=== PATIENT | male | born 1950 | race Caucasian/White ===

== ENCOUNTER 2023-11-10 20:48 | Inpatient (IN) | payer BC ==
[~2023-11-10] VITALS: Ht 170.2 cm; Wt 75.3 kg
[2023-11-10] MEDS ORDERED: ALBUTEROL (0.083%) 2.5MG/3ML NEB HHN ONE (21:15)
[2023-11-10] MEDS: ATROPINE SULFATE 1MG/10ML SYR IV ONE (21:15)
[2023-11-10] MEDS: INSULIN REGULAR (HUMULIN R) 1000UNITS/10ML VIAL IV ONE (21:17)
[2023-11-10] MEDS: SODIUM POLYSTYRENE SULFONATE 15 G/60 ML BOT PO ONE (21:21)
[2023-11-10] MEDS: SODIUM BICARBONATE 8.4% 50MEQ/50ML SYR IV ONE (21:21)
[2023-11-10] MEDS: DEXTROSE 50% WATER 50ML SYRINGE IV ONE (21:21)
[2023-11-10] MEDS: CALCIUM CHLORIDE 1GM/10ML SYR IV ONE (21:21)
[2023-11-10 21:23] LABS: BASOPHILS % 0.5 % (0.0-2.0); DIFFERENTIAL COMMENT 0; HEMATOCRIT. 31.3 % (42.0-52.0); HEMOGLOBIN. 10.4 g/dL (14.0-18.0); LYMPHOCYTES % 23.9 % (20.0-50.0); MEAN CORPUSCULAR HEMOGLOBIN 33.3 pg (28.0-32.0); MEAN CORPUSCULAR HGB CONC 33.1 g/dL (31.0-37.0); MEAN CORPUSCULAR VOLUME 100.8 fL (80.0-94.0); MEAN PLATELET VOLUME 9.1 fl (7.4-10.4); MONOCYTES % 9.2 % (2.0-8.0); NEUTROPHILS % 64.4 % (40.0-76.0); PLATELET 213 x1000/uL (130-400); RED BLOOD CELL COUNT 3.11 mill/uL (4.7-6.1); RED CELL DISTRIBUTION WIDTH 13.4 % (11.6-14.6); WHITE BLOOD COUNT 12.2 x1000/uL (4.5-11.0)
[2023-11-10 21:28] LABS: CHLORIDE 92 mEq/L (98-107); POTASSIUM 4.5 mEq/L (3.5-5.1); SODIUM 134 mEq/L (136-145)
[2023-11-10 21:29] LABS: CARBON DIOXIDE 30 mEq/L (21-32)
[2023-11-10] MEDS ORDERED: DOPAMINE 800MG/500ML PREMIX 500 ML IV ONE (21:30)
[2023-11-10 21:32] LABS: PARTIAL THROMBOPLASTIN TIME 26.2 sec (23.4-31.0); PROTHROMBIN TIME 10.8 sec (9.6-11.0)
[2023-11-10 21:34] LABS: GLUCOSE 185 mg/dL (70-105); UREA NITROGEN BLOOD 68 mg/dL (9-23)
[2023-11-10 21:35] LABS: LACTIC ACID 2.7 mmol/L (0.4-2.0)
[2023-11-10 21:44] LABS: CREATININE 11.1 mg/dL (0.6-1.3); ETHANOL BLOOD < 10 mg/dL (<10); TROPONIN I HIGH SENSITIVITY 62 ng/L (3.0-53)
[2023-11-10] MEDS: DOPAMINE 800MG/500ML PREMIX 500 ML IV NR (21:46)
[2023-11-10 22:06] LABS: ALANINE AMINOTRANSFERASE 8 IU/L (10-49)
[2023-11-10 22:07] LABS: ALBUMIN 4.1 g/dL (3.2-4.8); ASPARTATE AMINOTRANSFERASE 14 IU/L (<34); BILIRUBIN TOTAL 0.2 mg/dL (0.1-1.0)
[2023-11-10 22:18] LABS: BILIRUBIN DIRECT < 0.1 mg/dL (<=3.0)
[2023-11-10] MEDS: ONDANSETRON HCL 4MG/2ML INJ IV ONE (22:54)
[2023-11-10 23:03] LABS: TROPONIN I HIGH SENSITIVITY 74 ng/L (3.0-53)
[2023-11-11] VITALS (88 sets, daily range): BP systolic 55–183; BP diastolic 20–169; PULSE 34–87; RESP 6–60; TEMP 36.33624–36.8072; O2SAT 91–100
[2023-11-11] MEDS ORDERED: CLONIDINE 0.1MG TABLET PO PRN (01:45)
[2023-11-11] MEDS ORDERED: GUAIFENESIN 200MG/10ML SUGAR FREE UDC PO PRN (01:45)
[2023-11-11] MEDS ORDERED: DOCUSATE SODIUM 100MG CAPSULE PO PRN (01:45)
[2023-11-11] MEDS ORDERED: ACETAMINOPHEN 325MG TABLET PO PRN (01:45)
[2023-11-11] MEDS ORDERED: NA PHOS,M-B/NA PHOS,DI-BA ENEMA 118ML PR PRN (01:45)
[2023-11-11] MEDS ORDERED: ONDANSETRON HCL 4MG/2ML INJ IV PRN (01:45)
[2023-11-11] MEDS ORDERED: HYDROCODONE/ACETAMINOPHEN 5/325MG TABLET PO PRN (01:45)
[2023-11-11] MEDS ORDERED: IPRATROPIUM/ALBUTEROL 0.5-3(2.5)MG/3ML NEB HHN PRN (01:45)
[2023-11-11] MEDS ORDERED: MAGNESIUM/ALUMINUM HYDROXIDE/SIMETHICONE 30ML UDC PO PRN (01:45)
[2023-11-11] MEDS ORDERED: DEXTROSE 50% WATER 50ML SYRINGE IV PRN (01:45)
[2023-11-11] MEDS: PANTOPRAZOLE SODIUM 40 MG/VIAL IV SCH (03:36)
[2023-11-11] MEDS: DEXT 5%/0.9% NACL 1,000 ML IV SCH (03:40)
[2023-11-11] MEDS ORDERED: INSLIS SUBCUT (04:23)
[2023-11-11 06:07] LABS: HEMATOCRIT. 36.2 % (42.0-52.0); HEMOGLOBIN. 12.1 g/dL (14.0-18.0); MEAN CORPUSCULAR HEMOGLOBIN 33.4 pg (28.0-32.0); MEAN CORPUSCULAR HGB CONC 33.4 g/dL (31.0-37.0); MEAN CORPUSCULAR VOLUME 100.3 fL (80.0-94.0); MEAN PLATELET VOLUME 9.7 fl (7.4-10.4); PLATELET 308 x1000/uL (130-400); RED BLOOD CELL COUNT 3.61 mill/uL (4.7-6.1); RED CELL DISTRIBUTION WIDTH 13.6 % (11.6-14.6); WHITE BLOOD COUNT 18.6 x1000/uL (4.5-11.0)
[2023-11-11 06:30] LABS: CARBON DIOXIDE 29 mEq/L (21-32); CHLORIDE 92 mEq/L (98-107); SODIUM 131 mEq/L (136-145)
[2023-11-11 06:31] LABS: THYROID STIMULATING HORMONE 0.96 uIU/mL (0.55-4.78)
[2023-11-11 06:35] LABS: IRON 60 ug/dL (65-175)
[2023-11-11 06:36] LABS: GLUCOSE 284 mg/dL (70-105); TRIGLYCERIDE 76 mg/dL (0-150); UREA NITROGEN BLOOD 73 mg/dL (9-23)
[2023-11-11 06:37] LABS: ALANINE AMINOTRANSFERASE < 7 IU/L (10-49); ALBUMIN 4.8 g/dL (3.2-4.8); ASPARTATE AMINOTRANSFERASE 14 IU/L (<34); LDL CHOLESTEROL 108 mg/dL (5-100)
[2023-11-11 06:38] LABS: BILIRUBIN DIRECT 0.2 mg/dL (<=3.0); BILIRUBIN TOTAL 0.5 mg/dL (0.1-1.0); CHOLESTEROL 165 mg/dL (<200); HDL CHOLESTEROL 43 mg/dL (>55); PHOSPHORUS 5.6 mg/dL (2.5-4.9); PROTEIN TOTAL 8.3 g/dL (6.0-8.3); TOTAL IRON BINDING CAPACITY 172 ug/dl (250-425)
[2023-11-11 06:46] LABS: HEPATITIS B SURFACE ANTIGEN NEGATIVE (Negative)
[2023-11-11 06:48] LABS: CREATININE 10.6 mg/dL (0.6-1.3)
[2023-11-11 07:05] LABS: HEPATITIS C AB NON REACTIVE (Neg) (Negative)
[2023-11-11 07:11] LABS: DIFFERENTIAL COMMENT 1
[2023-11-11] MEDS ORDERED: ONDANSETRON HCL 4MG/2ML INJ IV SCH (07:45)
[2023-11-11] MEDS: BLOOD SUGAR DIAGNOSTIC STRIP TEST SCH (07:50)
[2023-11-11] MEDS ORDERED: LIDOCAINE HCL 1% 10 MG/ML 10ML VIAL ONE (08:08)
[2023-11-11 08:26] LABS: T4 FREE 1.14 ng/dL (0.89-1.76)
[2023-11-11] MEDS ORDERED: CALCIUM GLUCONATE 1,000 MG in DEXT 5% WATER 90 ML IV STA (08:43)
[2023-11-11 09:16] LABS: FOLIC ACID (FOLATE) SERUM 11.21 ng/mL (>5.38)
[2023-11-11 09:17] LABS: CREATINE KINASE MB FRACTION 3.8 ng/mL (0.5-3.6); VITAMIN B12 SERUM 960 pg/mL (211-911)
[2023-11-11] MEDS: SUCRALFATE 1G TABLET PO SCH (09:26)
[2023-11-11] MEDS: SODIUM BICARBONATE 8.4% 50MEQ/50ML SYR IV NR (09:27)
[2023-11-11] MEDS: INSULIN REGULAR (HUMULIN R) 1000UNITS/10ML VIAL IV NR ×2 (09:28→23:22)
[2023-11-11] MEDS: INSULIN LISPRO 100 UNITS/ML SUBCUT SCH (09:28)
[2023-11-11 09:33] LABS: PLATELET ESTIMATE NORMAL
[2023-11-11] MEDS: ONDANSETRON HCL 4MG/2ML INJ IV PRN (09:36)
[2023-11-11] MEDS: CALCIUM GLUCONATE 1GM PREMIX 50 ML IV NR (09:44)
[2023-11-11] MEDS: DEXTROSE 50% WATER 50ML SYRINGE IV NR (09:44)
[2023-11-11] MEDS ORDERED: NALOXONE HCL 0.4MG/ML VIAL IV PRN (14:30)
[2023-11-11 14:35] LABS: HEPATITIS B SURFACE ANTIGEN NEGATIVE (Negative)
[2023-11-11 14:56] LABS: HEPATITIS A AB IGM NEGATIVE (Negative); HEPATITIS B CORE AB IGM NEGATIVE (Negative)
[2023-11-11 14:57] LABS: HEPATITIS C AB NON REACTIVE (Neg) (Negative)
[2023-11-11 16:17] LABS: CREATINE KINASE MB FRACTION 3.9 ng/mL (0.5-3.6)
[2023-11-11] MEDS: DOPAMINE 800MG/500ML PREMIX 500 ML IV PRN (16:20)
[2023-11-11 22:08] LABS: POTASSIUM 5.5 mEq/L (3.5-5.1)
[2023-11-11 22:14] LABS: CREATINE KINASE MB FRACTION 3.4 ng/mL (0.5-3.6)
[2023-11-11] MEDS: INSULIN GLARGINE 100 UNITS/ML SUBCUT SCH (22:56)
[2023-11-11 23:02] LABS: CREATININE 8.6 mg/dL (0.6-1.3)
[2023-11-12] VITALS (96 sets, daily range): BP systolic 69–184; BP diastolic 23–116; PULSE 39–93; RESP 1–37; TEMP 36.44736–37.05852; O2SAT 92–100
[2023-11-12 02:46] LABS: POTASSIUM 5.3 mEq/L (3.5-5.1)
[2023-11-12 02:54] LABS: CREATINE KINASE MB FRACTION 3.2 ng/mL (0.5-3.6)
[2023-11-12 06:09] LABS: HEMATOCRIT 35.1 % (42.0-52.0); HEMOGLOBIN 11.8 g/dL (14.0-18.0); MEAN CORPUSCULAR HEMOGLOBIN 33.6 pg (28.0-32.0); MEAN CORPUSCULAR HGB CONC 33.5 g/dL (31.0-37.0); MEAN CORPUSCULAR VOLUME 100.5 fL (80.0-94.0); PLATELET 262 x1000/uL (130-400); RED CELL DISTRIBUTION WIDTH 13.4 % (11.6-14.6); WHITE BLOOD COUNT 14.9 x1000/uL (4.5-11.0)
[2023-11-12 06:10] LABS: CHLORIDE 97 mEq/L (98-107); POTASSIUM 5.6 mEq/L (3.5-5.1); SODIUM 136 mEq/L (136-145)
[2023-11-12 06:11] LABS: CARBON DIOXIDE 27 mEq/L (21-32)
[2023-11-12 06:12] LABS: CALCIUM 8.8 mg/dL (8.7-10.4)
[2023-11-12 06:14] LABS: CLARITY URINE CLEAR (CLEAR); COLOR URINE YELLOW (YELLOW); GLUCOSE URINE 1+ (NEGATIVE); KETONES URINE NEGATIVE (NEGATIVE); LEUKOCYTE ESTERASE URINE NEGATIVE (NEGATIVE); NITRITE URINE NEGATIVE (NEGATIVE); OCCULT BLOOD URINE 2+ (NEGATIVE); PH URINE >=9.0 (4.5-8.0); PROTEIN URINE 3+ (NEGATIVE); SPECIFIC GRAVITY URINE 1.014 (1.005-1.030); UROBILINOGEN URINE 0.2 E.U./dL (0.2-1.0)
[2023-11-12 06:16] LABS: GLUCOSE 221 mg/dL (70-105)
[2023-11-12 06:17] LABS: CREATINE KINASE MB FRACTION 2.9 ng/mL (0.5-3.6); UREA NITROGEN BLOOD 55 mg/dL (9-23)
[2023-11-12 06:19] LABS: PHOSPHORUS 5.5 mg/dL (2.5-4.9)
[2023-11-12 06:31] LABS: CREATININE 8.9 mg/dL (0.6-1.3)
[2023-11-12 07:29] LABS: SQUAMOUS EPITHELIAL CELL URINE NONE SEEN /lpf (RARE/1+)
[2023-11-12 07:30] LABS: BACTERIA URINE TRACE; RBC URINE 25-50 /hpf (0-2)
[2023-11-12] MEDS ORDERED: HEPARIN 25,000 UNITS PREMIX 250 ML IV SCH (07:30)
[2023-11-12 07:31] LABS: WBC URINE 0-2 /hpf (0-2)
[2023-11-12 08:36] LABS: HEMATOCRIT. 36.9 % (42.0-52.0); HEMOGLOBIN. 11.9 g/dL (14.0-18.0); MEAN CORPUSCULAR HEMOGLOBIN 32.8 pg (28.0-32.0); MEAN CORPUSCULAR HGB CONC 32.3 g/dL (31.0-37.0); MEAN CORPUSCULAR VOLUME 101.7 fL (80.0-94.0); MEAN PLATELET VOLUME 9.1 fl (7.4-10.4); PLATELET 268 x1000/uL (130-400); RED BLOOD CELL COUNT 3.63 mill/uL (4.7-6.1); RED CELL DISTRIBUTION WIDTH 13.7 % (11.6-14.6); WHITE BLOOD COUNT 16.1 x1000/uL (4.5-11.0)
[2023-11-12 08:46] LABS: DIFFERENTIAL COMMENT 1
[2023-11-12] MEDS ORDERED: HEPARIN BOLUS PRN aPTT 30-44 IV (10:15)
[2023-11-12] MEDS ORDERED: HEPARIN BOLUS PRN aPTT <30 IV (10:15)
[2023-11-12 10:18] LABS: INR 1.1; PARTIAL THROMBOPLASTIN TIME 28.8 sec (23.4-31.0); PROTHROMBIN TIME 11.9 sec (9.6-11.0)
[2023-11-12] MEDS ORDERED: HEPARIN 25,000 UNITS PREMIX 250 ML IV PRN (10:30)
[2023-11-12] MEDS: HEPARIN 60 UNITS/KG BOLUS IV NR (11:00)
[2023-11-12 12:02] LABS: PLATELET ESTIMATE NORMAL
[2023-11-12] MEDS: GENTAMICIN/NS IRRIGATION 500 ML IR SCH (12:30)
[2023-11-12] MEDS ORDERED: IODIXANOL 320 MG/ML 150ML BOTTLE IV ONE (13:21)
[2023-11-12] MEDS ORDERED: HEPARIN 1000 UNITS/ML 10ML ONE (13:22)
[2023-11-12] MEDS ORDERED: MIDAZOLAM HCL 2 MG/2 ML VIAL ONE (13:22)
[2023-11-12] MEDS ORDERED: FENTANYL CITRATE/PF 50MCG/ML 2ML VIAL ONE (13:22)
[2023-11-12] MEDS ORDERED: LIDOCAINE HCL 1% 20ML VIAL ONE ×3 (13:24→15:01)
[2023-11-12] MEDS ORDERED: ATROPINE SULFATE 1MG/10ML SYR ONE (13:24)
[2023-11-12] MEDS ORDERED: DOPAMINE 800MG PREMIX (DOUBLE) 250 ML IV PRN (14:00)
[2023-11-12] MEDS ORDERED: HYDRALAZINE 20MG/ML VIAL ONE (14:42)
[2023-11-12] MEDS ORDERED: CEFAZOLIN SODIUM 1000MG/VIAL ONE ×2 (14:46→14:47)
[2023-11-12] MEDS ORDERED: IODIXANOL 320MG/ML 100 ML BOTTLE IV ONE (15:10)
[2023-11-12] MEDS: SODIUM CHLORIDE 0.9% 1,000 ML IV ONE (18:00)
[2023-11-12] MEDS ORDERED: CEFAZOLIN SODIUM 1000MG/VIAL IV SCH (22:00)
[2023-11-13] VITALS (74 sets, daily range): BP systolic 74–167; BP diastolic 32–119; PULSE 70–96; RESP 8–22; TEMP 36.22512–37.61412; O2SAT 96–100
[2023-11-13 02:25] LABS: POTASSIUM 4.9 mEq/L (3.5-5.1)
[2023-11-13 02:27] LABS: CALCIUM 7.9 mg/dL (8.7-10.4)
[2023-11-13 02:38] LABS: CREATININE 9.3 mg/dL (0.6-1.3)
[2023-11-13 05:37] LABS: CHLORIDE 101 mEq/L (98-107); POTASSIUM 4.9 mEq/L (3.5-5.1); SODIUM 138 mEq/L (136-145)
[2023-11-13 05:38] LABS: CALCIUM 8.2 mg/dL (8.7-10.4); CARBON DIOXIDE 27 mEq/L (21-32)
[2023-11-13 05:43] LABS: GLUCOSE 96 mg/dL (70-105)
[2023-11-13 05:45] LABS: UREA NITROGEN BLOOD 67 mg/dL (9-23)
[2023-11-13 05:47] LABS: PHOSPHORUS 5.9 mg/dL (2.5-4.9)
[2023-11-13 06:11] LABS: HEMOGLOBIN 9.5 g/dL (14.0-18.0); MEAN CORPUSCULAR HGB CONC 34.1 g/dL (31.0-37.0); MEAN CORPUSCULAR VOLUME 99.8 fL (80.0-94.0); PLATELET 199 x1000/uL (130-400); RED CELL DISTRIBUTION WIDTH 13.3 % (11.6-14.6); WHITE BLOOD COUNT 9.8 x1000/uL (4.5-11.0)
[2023-11-13 06:14] LABS: CREATININE 9.3 mg/dL (0.6-1.3)
[2023-11-13] MEDS: FOLIC ACID/VITAMIN B COMP W-C TABLET PO SCH (10:39)
[2023-11-13] MEDS: SEVELAMER CARBONATE 800 MG TABLET PO SCH (10:39)
[2023-11-13] MEDS: CEFAZOLIN 1000MG PREMIX 50ML IV SCH (11:13)
[2023-11-13] MEDS: ATORVASTATIN CALCIUM 40MG TABLET PO SCH (21:12)
[2023-11-14 03:53] VITALS: BP 111/45; PULSE 60; RESP 18; TEMP 36.89184; O2SAT 98
[2023-11-14 07:48] VITALS: BP 114/33; PULSE 60; RESP 20; TEMP 36.9474; O2SAT 99
[2023-11-14 12:01] VITALS: BP 110/33; PULSE 59; RESP 18; TEMP 36.89184; O2SAT 98
[2023-11-14] MEDS ORDERED: SEVE800T8 PO (16:11)
[2023-11-14] MEDS ORDERED: HYDR-4001 PO (16:11)
[2023-11-14] MEDS ORDERED: LIP40 PO (16:11)
[2023-11-14] MEDS ORDERED: INSU100I28 SQ (16:11)
[2023-11-14] MEDS ORDERED: ASPI-1160 PO (16:11)
[2023-11-14] MEDS ORDERED: SUCR1TAB30 PO (16:11)
[2023-11-14 16:16] VITALS: BP 133/30; PULSE 61; TEMP 98.4; O2SAT 97
[2023-11-14 16:27] VITALS: BP 133/30; PULSE 61; RESP 19; TEMP 36.89184; O2SAT 97
[2023-11-14] MEDS: ACETAMINOPHEN 325MG TABLET PO PRN (16:52)
[2023-11-15] MEDS ORDERED: ASPIRIN 81MG TABLET PO SCH (09:00)
== END 2023-11-14 18:25 | disposition home health service (06) | DRG 242 ==
LOC: ER 20:48 → EDBEDREQ 23:58 → CVICU 11-11 04:06 → 7WST 11-13 12:06
PROVIDERS: ADMIT Internal Medicine; ATTEND Internal Medicine
PROC: 02HV33Z Insertion of Infusion Device into Superior Vena Cava, Percutaneous Approach (ICD-10-PCS; 2023-11-11)
PROC: B548ZZA Ultrasonography of Superior Vena Cava, Guidance (ICD-10-PCS; 2023-11-11)
PROC: 5A1D70Z Performance of Urinary Filtration, Intermittent, Less than 6 Hours Per Day (ICD-10-PCS; 2023-11-11)
PROC: 0JH606Z Insertion of Pacemaker, Dual Chamber into Chest Subcutaneous Tissue and Fascia, Open Approach (ICD-10-PCS; principal; 2023-11-12)
PROC: 02H63JZ Insertion of Pacemaker Lead into Right Atrium, Percutaneous Approach (ICD-10-PCS; 2023-11-12)
PROC: 4A023N7 Measurement of Cardiac Sampling and Pressure, Left Heart, Percutaneous Approach (ICD-10-PCS; 2023-11-12)
PROC: B2111ZZ Fluoroscopy of Multiple Coronary Arteries using Low Osmolar Contrast (ICD-10-PCS; 2023-11-12)
PROC: B2151ZZ Fluoroscopy of Left Heart using Low Osmolar Contrast (ICD-10-PCS; 2023-11-12)
PROC: 02HK3JZ Insertion of Pacemaker Lead into Right Ventricle, Percutaneous Approach (ICD-10-PCS; 2023-11-12)
PROC: 5A1D70Z Performance of Urinary Filtration, Intermittent, Less than 6 Hours Per Day (ICD-10-PCS; 2023-11-13)
DX: I44.2 Atrioventricular block, complete (principal); I21.A1 Myocardial infarction type 2; N18.6 End stage renal disease; R65.10 Systemic inflammatory response syndrome (SIRS) of non-infectious origin without acute organ dysfunction; I12.0 Hypertensive chronic kidney disease with stage 5 chronic kidney disease or end stage renal disease; I25.10 Atherosclerotic heart disease of native coronary artery without angina pectoris; E87.5 Hyperkalemia; E11.51 Type 2 diabetes mellitus with diabetic peripheral angiopathy without gangrene; E11.22 Type 2 diabetes mellitus with diabetic chronic kidney disease; E11.65 Type 2 diabetes mellitus with hyperglycemia; M47.816 Spondylosis without myelopathy or radiculopathy, lumbar region; K57.30 Diverticulosis of large intestine without perforation or abscess without bleeding; H54.8 Legal blindness, as defined in USA; D64.9 Anemia, unspecified; E83.39 Other disorders of phosphorus metabolism; Z99.2 Dependence on renal dialysis; Z79.4 Long term (current) use of insulin
CPT/HCPCS: 33208; 36415; 36573; 71045; 72131; 74176; 80048; 80061; 80076; 80320; 81003; 82550; 82553; 82607; 82728; 82746; 82962; 83036; 83540; 83550; 83605; 83735; 83880; 84100; 84132; 84145; 84439; 84443; 84484; 85025; 85027; 85044; 85379; 86705; 86709; 86850; 86900; 87077; 87340; 90935; 93005; 93306; 93458; 93923; 93970; 99291; A4565; C1725; C1760; C1769; C1785; C1887; C1893; C1898; J0360; J0461; J0610; J0690; J1265; J1644; J1815; J2250; J2405; J2470; J3010; J3490; Q9967; G0480